=== PATIENT | male | born 1980 | race Hispanic/Latino ===

== ENCOUNTER 2018-06-05 21:41 | Emergency (ER) | payer OTHER ==
[2018-06-05] MEDS ORDERED: CLINDAMYCIN 600 MG/D5% WATER 50 ML IV ONE (22:42)
[2018-06-05 22:45] LABS: BASOPHILS % (AUTO) 0.9 % (0.0-5.0); EOSINOPHILS % (AUTO) 1.9 % (0.0-8.0); LYMPHOCYTES % (AUTO) 40.1 % (21.0-51.0); MEAN CORPUSCULAR HEMOGLOBIN 31.8 pg (27.0-33.0); MEAN CORPUSCULAR HGB CONC 35.1 g/dL (32.0-36.0); MEAN CORPUSCULAR VOLUME 90.7 fL (79-99); MONOCYTES % (AUTO) 6.5 % (3.0-13.0); NEUTROPHILS % (AUTO) 50.6 % (40.0-77.0); PLATELET COUNT (AUTO) 220 K/uL (130-400); RED BLOOD CELL COUNT(AUTO) 4.85 MIL/uL (4.50-6.20); RED CELL DISTRIBUTION WIDTH 13.7 % (11.0-15.5); WHITE BLOOD COUNT (AUTO) 7.4 K/uL (4.8-10.8)
[2018-06-05 22:55] LABS: CREATININE 0.9 mg/dL (0.5-1.5); POTASSIUM 3.8 mmol/L (3.5-5.1)
[2018-06-05 22:59] LABS: ALBUMIN 4.1 g/dL (3.5-5.0); BILIRUBIN,TOTAL 0.3 mg/dL (0.2-1.0); TOTAL PROTEIN, SERUM 7.9 g/dL (6.0-8.3)
== END 2018-06-06 00:30 | disposition home or self-care (01) ==
LOC: EDH 21:41
DX: L03.114 Cellulitis of left upper limb (principal)
CPT/HCPCS: 36415; 80053; 85025; 96365; 99284; J3490

== ENCOUNTER 2018-09-03 23:48 | Emergency (ER) | payer OTHER ==
[2018-09-04] MEDS ORDERED: DEXAMETHASONE SOD PHOSPHATE 10MG/ML 1ML VIAL ONE (00:04)
[2018-09-04] MEDS ORDERED: IPRATROPIUM/ALBUTEROL SULFATE 3 ML SOLUTION IH ONE (00:10)
== END 2018-09-04 00:55 | disposition home or self-care (01) ==
LOC: EDH 23:48
DX: J20.9 Acute bronchitis, unspecified (principal)
CPT/HCPCS: 87804 ×2; 94640; 96372; 99283; J1100

== ENCOUNTER 2019-08-10 22:51 | Emergency (ER) | payer OTHER | END 2019-08-11 01:11 | disposition home or self-care (01) | LOC: EDH 22:51 | DX: S56.911A Strain of unspecified muscles, fascia and tendons at forearm level, right arm, initial encounter (principal); X50.1XXA Overexertion from prolonged static or awkward postures, initial encounter; Y93.89 Activity, other specified; Y92.89 Other specified places as the place of occurrence of the external cause; Y99.8 Other external cause status | CPT/HCPCS: 99282 ==

== ENCOUNTER 2019-11-29 20:15 | Observation (INO) | payer SELFPAY ==
[~2019-11-29] VITALS: Ht 154.9 cm; Wt 75.2 kg
[2019-11-29 20:47] LABS: APPEARANCE,URINE Clear (CLEAR); BILIRUBIN,URINE Negative (NEGATIVE); COLOR,URINE Yellow (YELLOW); GLUCOSE, URINE (UA) Negative (NEGATIVE); KETONES,URINE Negative (NEGATIVE); LEUKOCYTE ESTERASE ,URINE Negative (NEGATIVE); NITRATE,URINE Negative (NEGATIVE); OCCULT BLOOD,URINE Negative (NEGATIVE); PH,URINE 5.5 (5.0-8.0); PROTEIN,URINE Negative (NEGATIVE)
[2019-11-29] MEDS ORDERED: ACETAMINOPHEN 325 MG TAB ONE (20:54)
[2019-11-29 20:55] LABS: AMPHET/METH SCREEN,URINE NEGATIVE (NEGATIVE); BARBITURATE SCREEN, URINE NEGATIVE (NEGATIVE); BENZODIAZEPINES SCREEN,URINE NEGATIVE (NEGATIVE); CANNABINOID SCREEN,URINE NEGATIVE (NEGATIVE); COCAINE SCREEN,URINE NEGATIVE (NEGATIVE); OPIATE SCREEN,URINE NEGATIVE (NEGATIVE); PHENCYCLIDINE SCREEN,URINE NEGATIVE (NEGATIVE)
[2019-11-29 21:07] LABS: BASOPHILS % (AUTO) 0.5 % (0.0-5.0); EOSINOPHILS % (AUTO) 2.6 % (0.0-8.0); HEMATOCRIT 43.4 % (42-54); MEAN CORPUSCULAR HEMOGLOBIN 30.5 pg (27.0-33.0); MEAN CORPUSCULAR HGB CONC 35.5 g/dL (32.0-36.0); MEAN CORPUSCULAR VOLUME 85.9 fL (79-99); NEUTROPHILS % (AUTO) 50.6 % (40.0-77.0); PLATELET COUNT (AUTO) 218 K/uL (130-400); RED BLOOD CELL COUNT(AUTO) 5.05 MIL/uL (4.50-6.20); RED CELL DISTRIBUTION WIDTH 13.2 % (11.0-15.5); WHITE BLOOD COUNT (AUTO) 6.2 K/uL (4.8-10.8)
[2019-11-29 21:22] LABS: POTASSIUM 3.5 mmol/L (3.5-5.1)
[2019-11-29 21:29] LABS: ALBUMIN 4.2 g/dL (3.5-5.0); BILIRUBIN,TOTAL 0.4 mg/dL (0.2-1.0); MAGNESIUM 2.1 mg/dL (1.80-2.40); TOTAL PROTEIN, SERUM 8.1 g/dL (6.0-8.3)
[2019-11-29] MEDS ORDERED: IOHEXOL-350 75 ML VIAL IV ONE (21:30)
[2019-11-29] MEDS ORDERED: ASPIRIN 325 MG TABLET ONE (22:49)
[2019-11-29] MEDS ORDERED: MECLIZINE HCL 25 MG TABLET PO PRN (23:45)
[2019-11-29] MEDS ORDERED: LACTULOSE 20 GM/30 ML UDCUP PO PRN (23:45)
[2019-11-29] MEDS ORDERED: ONDANSETRON HCL 4 MG/2 ML VIAL IV PRN (23:45)
[2019-11-29] MEDS ORDERED: ACETAMINOPHEN 325 MG TAB PO PRN ×2 (23:45)
[2019-11-30] MEDS ORDERED: FAMOTIDINE 20MG TAB 20 MG TAB ONE (00:03)
[2019-11-30] MEDS ORDERED: ENOXAPARIN SODIUM 40 MG/0.4 ML SYRINGE SQ ONE (00:04)
[2019-11-30] MEDS ORDERED: ATORVASTATIN CALCIUM 20 MG TABLET ONE (00:04)
[2019-11-30 00:10] LABS: CHOLESTEROL 226 mg/dL (<200); HDL CHOLESTEROL 92 mg/dL (29-71); LDL DIRECT 153 mg/dL (0-99); TRIGLYCERIDES 162 mg/dL (30-200)
[2019-11-30 00:50] VITALS: BP 139/94
--- NOTE | 2019-11-30 01:37 | NUR ---
US US TO PERFORM ULTRASOUND FOR CAROTID
[2019-11-30 04:00] VITALS: BP 112/70
[2019-11-30 05:02] LABS: BASOPHILS % (AUTO) 0.4 % (0.0-5.0); EOSINOPHILS % (AUTO) 1.6 % (0.0-8.0); HEMATOCRIT 42.8 % (42-54); LYMPHOCYTES % (AUTO) 43.1 % (21.0-51.0); MEAN CORPUSCULAR HEMOGLOBIN 31.1 pg (27.0-33.0); MEAN CORPUSCULAR VOLUME 86.5 fL (79-99); MONOCYTES % (AUTO) 8.2 % (3.0-13.0); NEUTROPHILS % (AUTO) 46.6 % (40.0-77.0); PLATELET COUNT (AUTO) 226 K/uL (130-400); RED BLOOD CELL COUNT(AUTO) 4.95 MIL/uL (4.50-6.20); RED CELL DISTRIBUTION WIDTH 13.1 % (11.0-15.5)
[2019-11-30 05:21] LABS: CREATININE 0.9 mg/dL (0.5-1.5); POTASSIUM 3.8 mmol/L (3.5-5.1)
[2019-11-30 08:14] VITALS: BP 128/89
[2019-11-30] MEDS ORDERED: ENOXAPARIN SODIUM 40 MG/0.4 ML SYRINGE SQ SCH (09:00)
[2019-11-30] MEDS ORDERED: FAMOTIDINE 20MG TAB 20 MG TAB PO SCH (09:00)
[2019-11-30] MEDS ORDERED: ASPIRIN 325 MG TABLET PO SCH (09:00)
[2019-11-30] MEDS ORDERED: ASPIRIN 81MG TAB.CHEW ONE (09:23)
[2019-11-30] MEDS ORDERED: FOLIC ACID 1 MG TABLET PO SCH (10:30)
[2019-11-30] MEDS ORDERED: THIAMINE HCL 100 MG TABLET PO SCH (10:30)
--- NOTE | 2019-11-30 13:02 | NUR ---
jeronimo reynolds, gissell uploaded Addendum: 11/30/19 at 1303 by MAISHA IBRAHIM RN CM Amended: Links added.
[2019-11-30] MEDS ORDERED: GADODIAMIDE 10 MMOL/20 ML VIAL IV ONE (13:14)
[2019-11-30 13:36] VITALS: BP 118/80
[2019-11-30 13:55] LABS: HEMOGLOBIN A1C 4.8 % (4.0-6.0)
[2019-11-30 16:24] VITALS: BP 116/70
--- NOTE | 2019-11-30 17:15 | NUR ---
I SPOKE ON THE PHONE TO DR TAVAREZ AND INFORMED HIM OF NORMAL MRI AND PLANS FROM THE HOSPITALIST TO D/C HOME AND HE STATED THAT WAS OK
--- NOTE | 2019-11-30 18:47 | NUR ---
PT STATED UNDERSTANDING OF ALL D/C INSTRUCTIONS ON AFTER CARE FOR TIA; I HAVE GIVEN HIM A LIST OF LOCAL PRIMARY CARE PHYSICIANS, DR TAVAREZ'S NUMBER AND DR JAY NUMBER; I HAVE ALSO INSTRUCTED HIM TO RETURN TO ED IF ANY SYMPTOMS OF DIZZYNESS, VISUAL DISTURBANCE OR OTHER PROBLEMS OCCUR. IV ACCES REMOVED AND PT'S FAMILY ON HIS WAY TO PICK HIM UP.
[2019-11-30] MEDS ORDERED: ATORVASTATIN CALCIUM 20 MG TABLET PO SCH (21:00)
[2019-12-01] MEDS ORDERED: ASPIRIN 81MG TAB.CHEW PO SCH (09:00)
== END 2019-11-30 18:50 | disposition home or self-care (01) ==
LOC: EDH 20:15 → EDHIP 20:16 → 3DH 11-30 00:42
PROVIDERS: ADMIT Internal Medicine; ATTEND Internal Medicine
DX: G45.9 Transient cerebral ischemic attack, unspecified (principal); E78.00 Pure hypercholesterolemia, unspecified; Z79.899 Other long term (current) drug therapy
CPT/HCPCS: 36415 ×2; 70450; 70496; 70498; 70553; 80048; 80053; 80061; 80305; 81003; 83036; 83735; 84484; 85025 ×2; 85651; 86140; 93005; 93880; 96372; 99285; A9579; G0378 ×5; J1650 ×2; Q9967

== ENCOUNTER 2020-06-23 20:00 | Emergency (ER) | payer OTHER ==
[2020-06-23 20:27] LABS: APPEARANCE,URINE Clear (CLEAR); BILIRUBIN,URINE Negative (NEGATIVE); COLOR,URINE Dark Yellow (YELLOW); GLUCOSE, URINE (UA) Negative (NEGATIVE); KETONES,URINE Negative (NEGATIVE); LEUKOCYTE ESTERASE ,URINE Negative (NEGATIVE); NITRATE,URINE Negative (NEGATIVE); OCCULT BLOOD,URINE Negative (NEGATIVE); PROTEIN,URINE Trace mg/dL (NEGATIVE)
[2020-06-23 20:50] LABS: BACTERIA,URINE Few /HPF (None Seen); MUCUS,URINE Few LPF (None Seen); RBC,URINE 0-1 /HPF (0-1); SQUAMOUS EPITHELIAL CELL,UR Rare /HPF (0-2); WBC,URINE 0-1 /HPF (0-1)
[2020-06-23 21:27] LABS: AMPHET/METH SCREEN,URINE NEGATIVE (NEGATIVE); BARBITURATE SCREEN, URINE NEGATIVE (NEGATIVE); BENZODIAZEPINES SCREEN,URINE NEGATIVE (NEGATIVE); CANNABINOID SCREEN,URINE NEGATIVE (NEGATIVE); COCAINE SCREEN,URINE NEGATIVE (NEGATIVE); OPIATE SCREEN,URINE NEGATIVE (NEGATIVE); PHENCYCLIDINE SCREEN,URINE NEGATIVE (NEGATIVE)
[2020-06-23 21:28] LABS: BASOPHILS % (AUTO) 0.5 % (0.0-5.0); EOSINOPHILS % (AUTO) 1.2 % (0.0-8.0); HEMATOCRIT 48.3 % (42-54); LYMPHOCYTES % (AUTO) 31.8 % (21.0-51.0); MEAN CORPUSCULAR HEMOGLOBIN 30.7 pg (27.0-33.0); MEAN CORPUSCULAR HGB CONC 35.4 g/dL (32.0-36.0); MEAN CORPUSCULAR VOLUME 86.7 fL (79-99); MONOCYTES % (AUTO) 8.1 % (3.0-13.0); PLATELET COUNT (AUTO) 230 K/uL (130-400); RED BLOOD CELL COUNT(AUTO) 5.57 MIL/uL (4.50-6.20); RED CELL DISTRIBUTION WIDTH 12.9 % (11.0-15.5); WHITE BLOOD COUNT (AUTO) 7.7 K/uL (4.8-10.8)
[2020-06-23 21:37] LABS: CREATININE 0.9 mg/dL (0.5-1.5); CRP QUANTITATIVE 2.6 mg/L (0.00-9.0); POTASSIUM 3.8 mmol/L (3.5-5.1)
[2020-06-23] MEDS ORDERED: IOHEXOL-350 75 ML VIAL IV ONE (22:08)
[2020-06-23] MEDS ORDERED: MAGNESIUM CITRATE 296 ML SOLUTION ONE (23:47)
[2020-06-24] MEDS ORDERED: DOXYCYCLINE HYCLATE 100 MG TABLET PO ONE (00:03)
== END 2020-06-24 00:09 | disposition home or self-care (01) ==
LOC: EDH 20:00
DX: N41.0 Acute prostatitis (principal); K59.00 Constipation, unspecified
CPT/HCPCS: 36415; 74178; 80048; 80305; 81001; 85025; 86140; 87088; 87486; 87797; 99285; Q9967

== ENCOUNTER 2021-03-12 22:56 | Emergency (ER) | payer OTHER ==
[~2021-03-12] VITALS: Ht 157.5 cm; Wt 70.3 kg
[2021-03-12 23:34] VITALS: BP 128/87
[2021-03-12 23:43] LABS: BASOPHILS % (AUTO) 0.4 % (0.0-5.0); EOSINOPHILS % (AUTO) 1.2 % (0.0-8.0); LYMPHOCYTES % (AUTO) 26.8 % (21.0-51.0); MEAN CORPUSCULAR HEMOGLOBIN 31.1 pg (27.0-33.0); MEAN CORPUSCULAR HGB CONC 34.9 g/dL (32.0-36.0); MEAN CORPUSCULAR VOLUME 89.1 fL (79-99); MONOCYTES % (AUTO) 7.8 % (3.0-13.0); NEUTROPHILS % (AUTO) 63.4 % (40.0-77.0); PLATELET COUNT (AUTO) 217 K/uL (130-400); RED BLOOD CELL COUNT(AUTO) 5.05 MIL/uL (4.50-6.20); RED CELL DISTRIBUTION WIDTH 13.2 % (11.0-15.5); WHITE BLOOD COUNT (AUTO) 6.8 K/uL (4.8-10.8)
[2021-03-12 23:49] LABS: APPEARANCE,URINE Clear (CLEAR); BILIRUBIN,URINE Negative (NEGATIVE); COLOR,URINE Yellow (YELLOW); GLUCOSE, URINE (UA) Negative (NEGATIVE); KETONES,URINE Negative (NEGATIVE); LEUKOCYTE ESTERASE ,URINE Negative (NEGATIVE); NITRATE,URINE Negative (NEGATIVE); OCCULT BLOOD,URINE Negative (NEGATIVE); PH,URINE 5.5 (5.0-8.0); PROTEIN,URINE Trace mg/dL (NEGATIVE)
[2021-03-12 23:53] LABS: CREATININE 0.9 mg/dL (0.5-1.5); POTASSIUM 4.4 mmol/L (3.5-5.1)
[2021-03-12 23:58] LABS: BILIRUBIN,TOTAL 0.4 mg/dL (0.2-1.0); TOTAL PROTEIN, SERUM 8.1 g/dL (6.0-8.3)
== END 2021-03-13 04:33 | disposition left against medical advice (07) ==
LOC: EDH 22:56
DX: R10.9 Unspecified abdominal pain (principal); Z53.21 Procedure and treatment not carried out due to patient leaving prior to being seen by health care provider
CPT/HCPCS: 36415; 80053; 81003; 85025

== ENCOUNTER 2021-11-10 11:34 | Emergency (ER) | payer BC ==
[~2021-11-10] VITALS: Ht 157.5 cm; Wt 72.6 kg
[2021-11-10] MEDS ORDERED: KETOROLAC 30MG VIAL (30MG/ML) IVP ONE (12:00)
[2021-11-10] MEDS ORDERED: CYCLOBENZAPRINE HCL 10 MG TABLET PO ONE (12:00)
[2021-11-10] MEDS ORDERED: 0.9% NACL 500ML IV.SOLN 500 ML IV SCH (12:00)
[2021-11-10] MEDS ORDERED: PROMETHAZINE HCL 25 MG/ML 1ML AMPULE IM ONE (12:00)
[2021-11-10] MEDS ORDERED: CYCLOBENZAPRINE HCL 10 MG TABLET ONE (12:02)
[2021-11-10] MEDS ORDERED: KETOROLAC 30MG VIAL (30MG/ML) ONE (12:02)
[2021-11-10] MEDS ORDERED: 0.9%NACL 1000ML 1,000 ML IV ONE (12:03)
[2021-11-10 12:08] LABS: BASOPHILS % (AUTO) 0.4 % (0.0-5.0); EOSINOPHILS % (AUTO) 1.2 % (0.0-8.0); HEMATOCRIT 48.8 % (42-54); LYMPHOCYTES % (AUTO) 32.6 % (21.0-51.0); MEAN CORPUSCULAR HEMOGLOBIN 30.5 pg (27.0-33.0); MEAN CORPUSCULAR HGB CONC 35.5 g/dL (32.0-36.0); MEAN CORPUSCULAR VOLUME 85.9 fL (79-99); NEUTROPHILS % (AUTO) 58.4 % (40.0-77.0); PLATELET COUNT (AUTO) 234 K/uL (130-400); RED BLOOD CELL COUNT(AUTO) 5.68 MIL/uL (4.50-6.20); RED CELL DISTRIBUTION WIDTH 12.9 % (11.0-15.5); WHITE BLOOD COUNT (AUTO) 5.6 K/uL (4.8-10.8)
[2021-11-10 12:19] LABS: CREATININE 0.9 mg/dL (0.5-1.5); POTASSIUM 4.7 mmol/L (3.5-5.1)
[2021-11-10 12:24] LABS: ALBUMIN 4.3 g/dL (3.5-5.0); BILIRUBIN,TOTAL 0.8 mg/dL (0.2-1.0); TOTAL PROTEIN, SERUM 8.2 g/dL (6.0-8.3)
[2021-11-10 12:26] LABS: APPEARANCE,URINE Clear (CLEAR); BILIRUBIN,URINE Negative (NEGATIVE); COLOR,URINE Yellow (YELLOW); GLUCOSE, URINE (UA) Negative (NEGATIVE); KETONES,URINE Negative (NEGATIVE); LEUKOCYTE ESTERASE ,URINE Negative (NEGATIVE); NITRATE,URINE Negative (NEGATIVE); OCCULT BLOOD,URINE Negative (NEGATIVE); PROTEIN,URINE Negative (NEGATIVE); UROBILINOGEN,URINE 0.2 mg/dL (0.2-1.0)
[2021-11-10 12:33] LABS: AMPHET/METH SCREEN,URINE NEGATIVE (NEGATIVE); BARBITURATE SCREEN, URINE NEGATIVE (NEGATIVE); BENZODIAZEPINES SCREEN,URINE NEGATIVE (NEGATIVE); CANNABINOID SCREEN,URINE NEGATIVE (NEGATIVE); COCAINE SCREEN,URINE NEGATIVE (NEGATIVE); OPIATE SCREEN,URINE NEGATIVE (NEGATIVE); PHENCYCLIDINE SCREEN,URINE NEGATIVE (NEGATIVE)
[2021-11-10] MEDS ORDERED: CYCL10TA16 PO (13:26)
[2021-11-10] MEDS ORDERED: NAPR-1180 PO (13:26)
[2021-11-10 13:57] VITALS: BP 129/88
== END 2021-11-10 13:50 | disposition home or self-care (01) ==
LOC: EDH 11:34
DX: G44.209 Tension-type headache, unspecified, not intractable (principal); R07.89 Other chest pain; Z79.1 Long term (current) use of non-steroidal anti-inflammatories (NSAID)
CPT/HCPCS: 36415; 71045; 80053; 80305; 81003; 84484; 85025; 96361; 96372; 96374; 99284; J1885; J2550; J7030

== ENCOUNTER 2022-02-09 14:19 | Emergency (ER) | payer BC ==
[~2022-02-09] VITALS: Ht 157.5 cm; Wt 72.6 kg
[~2022-02-09 14:19] MED LIST: CYCL10TA16 PO; NAPR-1180 PO
[2022-02-09 14:20] VITALS: BP 138/88
[2022-02-09] MEDS ORDERED: TETANUS/DIPHTHERIA TOXOID [ADULT] 0.5 ML VIAL IM ONE (14:30)
[2022-02-09] MEDS ORDERED: LIDOCAINE HCL 1% 20 ML VIAL INJ SCH (15:00)
[2022-02-09] MEDS ORDERED: ACETAMINOPHEN 500 MG TABLET PO ONE (15:00)
== END 2022-02-09 15:50 | disposition home or self-care (01) ==
LOC: EDH 14:19
DX: S01.111A Laceration without foreign body of right eyelid and periocular area, initial encounter (principal); Z79.899 Other long term (current) drug therapy; W22.8XXA Striking against or struck by other objects, initial encounter; Y93.89 Activity, other specified; Y92.89 Other specified places as the place of occurrence of the external cause; Y99.8 Other external cause status
CPT/HCPCS: 12011; 90471; 90714

== ENCOUNTER 2022-02-18 13:58 | Emergency (ER) | payer BC ==
[~2022-02-18] VITALS: Ht 157.5 cm; Wt 74.8 kg
[2022-02-18 14:00] VITALS: BP 132/86
== END 2022-02-18 14:26 | disposition home or self-care (01) ==
LOC: EDH 13:58
DX: S01.111D Laceration without foreign body of right eyelid and periocular area, subsequent encounter (principal); Z79.1 Long term (current) use of non-steroidal anti-inflammatories (NSAID); X58.XXXD Exposure to other specified factors, subsequent encounter
CPT/HCPCS: 99281

== ENCOUNTER 2022-04-14 16:33 | Emergency (ER) | payer BC ==
[~2022-04-14] VITALS: Ht 157.5 cm; Wt 76.7 kg
[2022-04-14 17:04] LABS: BASOPHILS % (AUTO) 0.5 % (0.0-5.0); EOSINOPHILS % (AUTO) 2.4 % (0.0-8.0); HEMATOCRIT 44.4 % (42-54); LYMPHOCYTES % (AUTO) 23.8 % (21.0-51.0); MEAN CORPUSCULAR HEMOGLOBIN 31.4 pg (27.0-33.0); MEAN CORPUSCULAR HGB CONC 36.5 g/dL (32.0-36.0); NEUTROPHILS % (AUTO) 65.9 % (40.0-77.0); PLATELET COUNT (AUTO) 220 K/uL (130-400); RED BLOOD CELL COUNT(AUTO) 5.16 MIL/uL (4.50-6.20); RED CELL DISTRIBUTION WIDTH 13.1 % (11.0-15.5); WHITE BLOOD COUNT (AUTO) 8.2 K/uL (4.8-10.8)
[2022-04-14 17:18] LABS: POTASSIUM 3.7 mmol/L (3.5-5.1)
[2022-04-14 17:27] LABS: ALBUMIN 3.9 g/dL (3.5-5.0); TOTAL PROTEIN, SERUM 7.9 g/dL (6.0-8.3)
[2022-04-14 18:46] VITALS: BP 115/75
== END 2022-04-14 18:49 | disposition home or self-care (01) ==
LOC: EDH 16:33
DX: R00.2 Palpitations (principal); R20.2 Paresthesia of skin; R42 Dizziness and giddiness; Z79.899 Other long term (current) drug therapy
CPT/HCPCS: 36415; 71045; 80053; 84484; 85025; 93005